=== PATIENT | male | born 1955 | race Two or more races ===

== ENCOUNTER 2022-10-31 07:44 | Outpatient (REF) | payer MEDICARE, SELFPAY ==
[2022-10-31 08:01] LABS: MANUAL DIFF FLAG NO
[2022-10-31 08:09] LABS: Basophils Absolute Auto 0.1 X10*3/uL (0.0-0.2); Basophils Percent Auto 0.8 % (0-2); Eosinophils Absolute Auto 0.2 X10*3/uL (0.0-0.4); Eosinophils Percent Auto 1.8 % (0-4); Hematocrit 41.6 % (42.0-52.0); Hemoglobin 13.3 g/dl (14.0-18.0); Imm Gran Abs Auto 0.03 X10*3/uL (0.00-0.03); Imm Gran Pct Auto 0.3 % (0.0-0.4); Lymphocytes Absolute Auto 2.7 X10*3/uL (1.2-4.9); Lymphocytes Percent Auto 28.8 % (20-40); Mean Corpuscular Hemoglobin 28.5 pg (27.0-33.0); Mean Corpuscular Volume 89.1 fL (80.0-98.0); Mean Platelet Volume 9.9 fL (9.4-12.4); Monocytes Absolute Auto 0.5 X10*3/uL (0.1-1.2); Monocytes Percent Auto 5.2 % (2-11); Neutrophils Percent Auto 63.1 % (45-73); Platelet Count 257 X10*3/uL (160-400); Red Blood Count 4.67 X10*6/uL (4.60-5.80); Red Cell Distribution Width 15.4 % (11.0-16.0); White Blood Count 9.5 X10*3/uL (4.8-10.8)
[2022-10-31 08:37] LABS: Estimated Average Glucose 117 mg/dL; Hemoglobin A1c % 5.7 %
[2022-10-31 08:43] LABS: Alanine Aminotransferase 20 U/L (0-40); Albumin Level 4.3 g/dL (3.5-5.0); Alkaline Phosphatase 77 U/L (39-117); Anion Gap 15 (12-20); Aspartate Amino Transferase 15 U/L (5-37); Bilirubin Total 1.4 mg/dL (0.0-1.0); Blood Urea Nitrogen 20 mg/dL (9-16); Calcium 9.5 mg/dL (8.4-10.2); Carbon Dioxide 23 mmol/L (22-29); Chloride 106 mmol/L (96-108); Cholesterol 112 mg/dL; Estimated Glomerular Filt Rate > 60; Glucose Random 123 mg/dL (60-115); HDL Cholesterol 21 mg/dL; LDL Cholesterol Calculated 70 mg/dl; Potassium 4.1 mmol/L (3.3-5.1); Sodium 140 mmol/L (135-145); Triglycerides 106 mg/dL
[2022-10-31 09:00] LABS: Prostate Specific Antigen 1.24 ng/mL (<0.05-4.0); Thyroid Stimulating Hormone 2.01 uIU/mL (0.32-4.0)
[2022-10-31 09:13] LABS: Folate 17.2 ng/mL (> or = 4.0); Vitamin B12 216 pg/mL (200-900)
== END 2022-10-31 07:45 | disposition home or self-care (01) ==
LOC: HO.LAB 07:44
PROVIDERS: PCP Internal Medicine; Visit Provider Internal Medicine
DX: Z00.01 Encounter for general adult medical examination with abnormal findings (principal); Z12.5 Encounter for screening for malignant neoplasm of prostate; R15.9 Full incontinence of feces; N40.1 Benign prostatic hyperplasia with lower urinary tract symptoms; G81.04 Flaccid hemiplegia affecting left nondominant side; E78.00 Pure hypercholesterolemia, unspecified; E11.9 Type 2 diabetes mellitus without complications
CPT/HCPCS: 36415; 80053; 80061; 82607; 82746; 83036; 84153; 84443; 85025

== ENCOUNTER 2022-11-02 10:09 | Outpatient (REF) | payer MEDICARE, SELFPAY ==
[2022-11-02 11:34] LABS: Creatinine Urine 132.23 mg/dL; Microalbum/Creatinine Ratio Ur 6.8 ug/mg cr
== END 2022-11-02 10:10 | disposition home or self-care (01) ==
LOC: HO.LNP 10:09
PROVIDERS: Visit Provider Internal Medicine
DX: Z00.01 Encounter for general adult medical examination with abnormal findings (principal); E11.9 Type 2 diabetes mellitus without complications; E78.00 Pure hypercholesterolemia, unspecified; G81.04 Flaccid hemiplegia affecting left nondominant side; N40.1 Benign prostatic hyperplasia with lower urinary tract symptoms; R15.9 Full incontinence of feces
CPT/HCPCS: 82043; 87086

== ENCOUNTER → 2022-12-06 14:28 | Outpatient (BNVA) | payer MEDICARE, MEDICAID, SELFPAY | PROVIDERS: PCP Internal Medicine; Visit Provider Urology | DX: Z13.9 Encounter for screening, unspecified (principal); N40.1 Benign prostatic hyperplasia with lower urinary tract symptoms; R39.198 Other difficulties with micturition | CPT/HCPCS: 51798; 99202 ==

== ENCOUNTER → 2022-12-31 15:42 | Outpatient (BNVA) | payer MEDICARE, MEDICAID, SELFPAY | PROVIDERS: PCP Internal Medicine; Visit Provider Surgery Vascular Surgery | DX: I65.29 Occlusion and stenosis of unspecified carotid artery (principal); I73.9 Peripheral vascular disease, unspecified | CPT/HCPCS: 99212 ==

== ENCOUNTER 2023-01-21 14:05 | Outpatient (REF) | payer MEDICARE, MEDICAID, SELFPAY ==
--- NOTE | ~2023-01-21 | US_ITS ---
EXAMINATION: NONINVASIVE ASSESSMENT OF THE ARTERIES OF BOTH LOWER EXTREMITIES WITH PVR EXAM AND BILATERAL LOWER EXTREMITY DUPLEX Sharri Ramos MD CLINICAL INFORMATION: Peripheral vascular disease TECHNIQUE: Ankle pulse volume recordings, ankle pressure measurements and ankle brachial indices were obtained of the lower extremity arterial system bilaterally in addition to duplex Doppler techniques with wave form analysis and measurement of velocities in the common femoral, profunda femoral, superficial femoral, popliteal and tibial arteries. The study was performed only at rest. COMPARISON: None FINDINGS: a) AT REST: RIGHT LE. The right ankle-brachial index is: 0.46 * >0.97-1.25 = normal - no significant arterial disease * 0.75-0.96 = mild peripheral arterial disease * 0.5-0.74 = moderate peripheral arterial disease * <0.50 = severe peripheral arterial disease 2. Right ankle pressure: normal. 3. Right ankle PVR waveform: normal. 4. Right direct duplex Doppler findings: Common femoral artery: 169 cm/s, Multiphasic Profunda femoris artery: 138 cm/s, Multiphasic Superficial femoral artery (proximal): 43 cm/s, monophasic Superficial femoral artery (mid): Occluded Superficial femoral artery (distal): Occluded Proximal Popliteal artery: 47 cm/s, monophasic Mid posterior tibial artery: 20 cm/s, monophasic LEFT LE. The left ankle-brachial index is: 0.63 * >0.97-1.25 = normal - no significant arterial disease * 0.75-0.96 = mild peripheral arterial disease * 0.5-0.74 = moderate peripheral arterial disease * <0.50 = severe peripheral arterial disease 2. Left ankle pressure: normal. 3. Left ankle PVR waveform: normal. 4. Left direct duplex Doppler findings: Common femoral artery: 146 cm/s, Multiphasic Profunda femoris artery: 292 cm/s, Multiphasic Superficial femoral artery (proximal): 241 cm/s, Multiphasic Superficial femoral artery (mid): Occluded Superficial femoral artery (distal): 72 cm/s, monophasic Proximal Popliteal artery: 50 cm/s, monophasic Mid posterior tibial artery: 35 cm/s, monophasic US/US PHOEBE complete IMPRESSION: RIGHT LEG: Severe peripheral arterial disease by PHOEBE. Occlusion of the mid and distal superficial femoral artery with monophasic flow distally. LEFT LEG: Moderate peripheral arterial disease by PHOEBE. Short segment occlusion of the mid superficial femoral artery with monophasic flow distally.
--- NOTE | ~2023-01-21 | US_ITS ---
EXAMINATION: NONINVASIVE ASSESSMENT OF THE ARTERIES OF BOTH LOWER EXTREMITIES WITH PVR EXAM AND BILATERAL LOWER EXTREMITY DUPLEX Sharri Ramos MD CLINICAL INFORMATION: Peripheral vascular disease TECHNIQUE: Ankle pulse volume recordings, ankle pressure measurements and ankle brachial indices were obtained of the lower extremity arterial system bilaterally in addition to duplex Doppler techniques with wave form analysis and measurement of velocities in the common femoral, profunda femoral, superficial femoral, popliteal and tibial arteries. The study was performed only at rest. COMPARISON: None FINDINGS: a) AT REST: RIGHT LE. The right ankle-brachial index is: 0.46 * >0.97-1.25 = normal - no significant arterial disease * 0.75-0.96 = mild peripheral arterial disease * 0.5-0.74 = moderate peripheral arterial disease * <0.50 = severe peripheral arterial disease 2. Right ankle pressure: normal. 3. Right ankle PVR waveform: normal. 4. Right direct duplex Doppler findings: Common femoral artery: 169 cm/s, Multiphasic Profunda femoris artery: 138 cm/s, Multiphasic Superficial femoral artery (proximal): 43 cm/s, monophasic Superficial femoral artery (mid): Occluded Superficial femoral artery (distal): Occluded Proximal Popliteal artery: 47 cm/s, monophasic Mid posterior tibial artery: 20 cm/s, monophasic LEFT LE. The left ankle-brachial index is: 0.63 * >0.97-1.25 = normal - no significant arterial disease * 0.75-0.96 = mild peripheral arterial disease * 0.5-0.74 = moderate peripheral arterial disease * <0.50 = severe peripheral arterial disease 2. Left ankle pressure: normal. 3. Left ankle PVR waveform: normal. 4. Left direct duplex Doppler findings: Common femoral artery: 146 cm/s, Multiphasic Profunda femoris artery: 292 cm/s, Multiphasic Superficial femoral artery (proximal): 241 cm/s, Multiphasic Superficial femoral artery (mid): Occluded Superficial femoral artery (distal): 72 cm/s, monophasic Proximal Popliteal artery: 50 cm/s, monophasic Mid posterior tibial artery: 35 cm/s, monophasic US/US arterial duplex LE BI IMPRESSION: RIGHT LEG: Severe peripheral arterial disease by PHOEBE. Occlusion of the mid and distal superficial femoral artery with monophasic flow distally. LEFT LEG: Moderate peripheral arterial disease by PHOEBE. Short segment occlusion of the mid superficial femoral artery with monophasic flow distally.
--- NOTE | ~2023-01-21 | US_ITS ---
EXAMINATION: US EXTRACRANIAL CAROTID DUPLEX, BILATERAL CLINICAL INFORMATION: Carotid stenosis. COMPARISON: None available. TECHNIQUE: Real-time ultrasound and Doppler techniques (integrating B-mode 2-D vascular images, Doppler spectral analysis and color-flow Doppler imaging) were utilized to interrogate the extracranial carotid arteries, the vertebral arteries and proximal subclavian arteries bilaterally. The degree of stenosis is determined by criteria similar to NASCET. FINDINGS: Right Side: 1. There is moderate atherosclerotic plaque seen in the bifurcation/proximal ICA region. The carotid stent appears patent. 2. The common carotid artery PSV proximally is 101 cm/s and distally 84 cm/s. 3. The proximal internal carotid artery velocities are 105 cm/s systolic and 22 cm/s diastolic. 4. The proximal external carotid artery PSV is 250 cm/s. 5. The vertebral artery shows antegrade flow. 6. The subclavian artery velocity is elevated at 272 cm/s. Left Side: 1. There is mild atherosclerotic plaque seen in the bifurcation/proximal ICA region. 2. The common carotid artery PSV proximally is 85 cm/s and distally 115 cm/s. 3. The proximal internal carotid artery velocities are 103 cm/s systolic and 22 cm/s diastolic. 4. The proximal external carotid artery PSV is 130 cm/s. 5. The vertebral artery shows antegrade flow. 6. The subclavian artery waveforms are normal. US/US carotid duplex BI IMPRESSION: 1. RIGHT: The carotid stent appears patent. Internal carotid artery velocities are normal consistent with less than 50% stenosis. 2. LEFT: Minimal, non-hemodynamically significant stenosis of the proximal left internal carotid artery corresponding to a 0-49% stenosis by velocity criteria.
== END 2023-01-21 14:06 | disposition home or self-care (01) ==
LOC: HO.US 14:05
PROVIDERS: PCP Internal Medicine; Visit Provider Surgery Vascular Surgery
DX: I65.23 Occlusion and stenosis of bilateral carotid arteries (principal); I70.213 Atherosclerosis of native arteries of extremities with intermittent claudication, bilateral legs
CPT/HCPCS: 93880; 93923; 93925

== ENCOUNTER → 2023-01-28 08:49 | Outpatient (BNVA) | payer MEDICARE, MEDICAID, SELFPAY | PROVIDERS: PCP Internal Medicine; Visit Provider Surgery Vascular Surgery | DX: I65.29 Occlusion and stenosis of unspecified carotid artery (principal); I73.9 Peripheral vascular disease, unspecified | CPT/HCPCS: 99212 ==

== ENCOUNTER 2023-02-27 16:42 | Outpatient (REF) | payer MEDICARE, MEDICAID, SELFPAY ==
--- NOTE | ~2023-02-27 | US_ITS ---
EXAMINATION: US RETROPERITONEAL LIMITED (RENAL ONLY) CLINICAL INFORMATION: Benign prostatic hyperplasia with lower urinary tract symptoms. COMPARISON: None available. TECHNIQUE: Real-time imaging of the kidneys. Technically difficult study secondary to bowel gas and body habitus. FINDINGS: RIGHT KIDNEY: 9.5 x 4.1 x 3.9 cm (SAG x AP x TRV). The kidney is normal in size, contour, and echogenicity. Renal cortical thickness is normal. No calculi or focal parenchymal lesions. No hydronephrosis. LEFT KIDNEY: 9.5 x 5.4 x 3.6 cm (SAG x AP x TRV). The kidney is normal in size, contour, and echogenicity. Renal cortical thickness is normal. No calculi or focal parenchymal lesions. No hydronephrosis. US/US renal BI IMPRESSION: Normal renal ultrasound.
== END 2023-02-27 16:43 | disposition home or self-care (01) ==
LOC: HO.US 16:42
PROVIDERS: PCP Internal Medicine; Visit Provider Urology
DX: N40.1 Benign prostatic hyperplasia with lower urinary tract symptoms (principal)
CPT/HCPCS: 76775

== ENCOUNTER 2023-04-03 12:24 | Outpatient (REF) | payer MEDICARE, MEDICAID, SELFPAY ==
[2023-04-05 17:13] LABS: TS Negative Control Passed; TS Panel A 0; TS Panel B 0; TS Positive Control Passed; TSpotTB Negative (Negative)
== END 2023-04-03 12:25 | disposition home or self-care (01) ==
LOC: HO.LAB 12:24
PROVIDERS: PCP Internal Medicine; Visit Provider Internal Medicine
DX: Z11.1 Encounter for screening for respiratory tuberculosis (principal)
CPT/HCPCS: 36415; 86481

== ENCOUNTER 2023-06-03 16:50 | Emergency (ER) | payer OTHER, MEDICAID, SELFPAY ==
--- NOTE | ~2023-06-03 | XR_ITS ---
EXAMINATION: XR CHEST CLINICAL INFORMATION: Chest pain, status post fall COMPARISON: None available. TECHNIQUE: Frontal view of the chest was obtained. FINDINGS: There is pacemaker battery over the left apex with leads over the right atrium and ventricle. No significant abnormality is noted involving the heart, lungs, mediastinum, bony thorax or soft tissues. XR/XR chest 1V IMPRESSION: No active cardiopulmonary disease
--- NOTE | ~2023-06-03 | CT_ITS ---
EXAMINATION: CT HEAD WITHOUT CONTRAST CT CERVICAL SPINE WITHOUT CONTRAST CLINICAL INFORMATION: Fall. COMPARISON: None. TECHNIQUE: Contiguous axial imaging was performed from the skullbase to vertex without intravenous administration of contrast. Multidetector helical imaging was performed through the cervical spine. This CT examination was performed using dose optimization techniques as appropriate, variously including the following: *Automated exposure control *Adjustment of mA and/or kV according to patient size (this includes techniques or standardized protocols for targeted exams where dose is matched to indication/reason for exam; i.e. extremities or head) *Use of iterative reconstruction technique DLP: 826, 408 mGy-cm. FINDINGS: HEAD: There is extensive chronic encephalomalacia in the right frontoparietal lobes and in the right basal ganglia with ex vacuo dilatation of the right lateral ventricle. Generalized parenchymal volume loss noted. There is Wallerian degeneration along the corticospinal tracts on the right side with volume loss in the right aspect of the midbrain and upper roebrta. There is no evidence of acute intracranial hemorrhage or territorial infarction. No abnormal mass effect or midline shift is seen. No extra-axial fluid collections are identified. The osseous structures and soft tissues are normal. There is a 2 cm retention cyst in the left maxillary sinus. Mild ethmoid sinus mucosal thickening noted. The mastoid air cells and remaining visualized portions of the paranasal sinuses are well aerated. CERVICAL SPINE: No acute fracture or subluxation is identified in the cervical spine. Multilevel disc-osteophyte complexes noted with endplate spurring. There is a rightward curvature of the cervical spine. The atlantoaxial articulation is normally maintained. Right carotid stent visible. The paraspinal soft tissues are normal. The lung apices are clear. CT/CT head/brain wo IV con IMPRESSION: 1. No acute intracranial hemorrhage or territorial infarction. 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 Generalized parenchymal volume loss. 2. No evidence of acute cervical spine traumatic injury. Multilevel spondylosis.
--- NOTE | ~2023-06-03 | CT_ITS ---
EXAMINATION: CT HEAD WITHOUT CONTRAST CT CERVICAL SPINE WITHOUT CONTRAST CLINICAL INFORMATION: Fall. COMPARISON: None. TECHNIQUE: Contiguous axial imaging was performed from the skullbase to vertex without intravenous administration of contrast. Multidetector helical imaging was performed through the cervical spine. This CT examination was performed using dose optimization techniques as appropriate, variously including the following: *Automated exposure control *Adjustment of mA and/or kV according to patient size (this includes techniques or standardized protocols for targeted exams where dose is matched to indication/reason for exam; i.e. extremities or head) *Use of iterative reconstruction technique DLP: 826, 408 mGy-cm. FINDINGS: HEAD: There is extensive chronic encephalomalacia in the right frontoparietal lobes and in the right basal ganglia with ex vacuo dilatation of the right lateral ventricle. Generalized parenchymal volume loss noted. There is Wallerian degeneration along the corticospinal tracts on the right side with volume loss in the right aspect of the midbrain and upper roberta. There is no evidence of acute intracranial hemorrhage or territorial infarction. No abnormal mass effect or midline shift is seen. No extra-axial fluid collections are identified. The osseous structures and soft tissues are normal. There is a 2 cm retention cyst in the left maxillary sinus. Mild ethmoid sinus mucosal thickening noted. The mastoid air cells and remaining visualized portions of the paranasal sinuses are well aerated. CERVICAL SPINE: No acute fracture or subluxation is identified in the cervical spine. Multilevel disc-osteophyte complexes noted with endplate spurring. There is a rightward curvature of the cervical spine. The atlantoaxial articulation is normally maintained. Right carotid stent visible. The paraspinal soft tissues are normal. The lung apices are clear. CT/CT cervical spine wo IV con IMPRESSION: 1. No acute intracranial hemorrhage or territorial infarction. 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 Generalized parenchymal volume loss. 2. No evidence of acute cervical spine traumatic injury. Multilevel spondylosis.
[2023-06-03 17:02] VITALS: BP 130/72; BP 143/66; PULSE 88; RESP 18; TEMP 36.9; O2SAT 95; O2SAT 97; BMI 24.3
[2023-06-03 17:11] LABS: Glucose, Whole Blood 157 mg/dL (60-115)
--- NOTE | 2023-06-03 18:03 | ED_ITS ---
HPI - Fall General Chief Complaint: Fall Stated Complaint: FALL FROM W/C IN VAN @ TURN 2HRS AGO,ABRASIONS Time Seen by Provider: 06/03/23 17:02 History of Present Illness HPI Narrative: Patient is a 68-year-old male presented today with having fallen during a chair car ride home. Patient was in a wheelchair when the vehicle made a turn. Subsequently patient landed on the ground. He was helped up by the staff. When home. Family was concerned about a head injury. Patient denies loss of consciousness. No vomiting. But wants a CT scan of the head. Patient is from home. Not on blood thinners. No nausea no vomiting. Related Data Home Medications Medication Instructions Recorded Confirmed aspirin 81 mg tablet,delayed 81 mg PO DAILY 11/26/22 release (Adult Aspirin Regimen) atorvastatin 40 mg tablet 40 mg PO BEDTIME 11/26/22 citalopram 20 mg tablet 20 mg PO DAILY 11/26/22 glipizide 10 mg tablet, extended 10 mg PO DAILY 11/26/22 release 24 hr melatonin 10 mg tablet 10 mg PO BEDTIME PRN 11/26/22 tamsulosin 0.4 mg capsule 0.4 mg PO DAILY 11/26/22 metformin 1,000 mg tablet 1,000 mg PO DAILY 12/31/22 Allergies Allergy/AdvReac Type Severity Reaction Status Date / Time No Known Allergies Allergy Verified 01/28/23 09:06 Review of Systems Review of Systems: Positive head injury Yes all other systems are reviewed and are negative PMFSH Past Medical History Attestation statement: The following information was validated with the patient. Medical History Arrhythmia BPH (benign prostatic hyperplasia) Chronic neurologic disease Depression Diabetes mellitus Hypercholesteremia Hypertension Pacemaker Peripheral vascular disease Retention of urine Type 2 diabetes mellitus Vitamin B12 deficiency anemia Social History Social History Patient Tobacco Use Status: Former Tobacco user Tobacco use type: Cigarette Advance Directives: No Advance Directives Information Provided: Yes Physical Exam Vital Signs: Vital Signs: Last Vital Signs Temp 98.4 F 06/03/23 19:37 Pulse 91 06/03/23 19:37 Resp 14 06/03/23 19:37 BP 121/67 06/03/23 19:37 Pulse Ox 95 06/03/23 19:37 O2 Del Method Room Air 06/03/23 19:37 BMI result Body Mass Index 24.3 Appearance: Alert. Oriented X3. No acute distress. Eyes: Pupils equal, round and reactive to light. ENT: Pharynx normal. There is no midface tenderness. There is no Aponte sign. There is no raccoon eyes. Neck: Normal inspection. Neck supple. No lymph nodes noted. No crepitus. There is no posterior C-spine tenderness elicited on palpation CVS: Normal heart rate and rhythm. Pulses normal. Normal S1 and S2 Respiratory: No respiratory distress. Breath sounds normal. No Wheezing. No rales Abdomen: Soft and nontender. No rigidity. No distention. good BS x4 Skin: Skin warm and dry. Normal skin color. Normal skin turgor. Extremities: No lower extremity edema. Neurovascular intact to all extremities. No Lacerations. No Rash Neuro: Oriented X 3. Positive left-sided weakness upper and lower extremity. Medical Decision Making Medical Decision Making [facility] Narrative: Patient status post accidental fall. The exam appears normal. Patient had question head injury. Family stated patient may have lost consciousness. Patient wanted a CT scan of the head. Patient's labs consistent with diabetes. CT scan of the head by my interpretation grossly negative for any acute evidence of bleeding. No fracture. CT scan of the C-spine showed no acute fracture. Patient's electrolytes consistent with having diabetes. Chest x-ray showed no focal fracture no pneumonia Differential Diagnosis Intracranial bleed, fracture, mass, C-spine injury Lab Data [facility] Lab Attestation statement: I reviewed the patient's lab results. 06/03/23 18:39 Labs: Lab Results 06/03/23 06/03/23 Range/Units 17:07 18:39 Sodium 138 (135-145) mmol/L Potassium 4.7 (3.3-5.1) mmol/L Chloride 104 (96-108) mmol/L Carbon Dioxide 26 (22-29) mmol/L Anion Gap 13 (12-20) BUN 16 (9-16) mg/dL Creatinine 1.18 (0.5-1.4) mg/dL Estim Creat Clear Calc 57.1 Estimated GFR > 60 POC Glucose 157 H (60-115) mg/dL Random Glucose 165 H (60-115) mg/dL Calcium 10.3 H D (8.4-10.2) mg/dL Total Bilirubin 1.1 H (0.0-1.0) mg/dL AST 16 (5-37) U/L ALT 16 (0-40) U/L Alkaline Phosphatase 78 (39-117) U/L Total Protein 7.3 (6.5-8.0) g/dL Albumin 4.2 (3.5-5.0) g/dL Independent Interpretation I performed an independent interpretation of an: Plain X-Ray (Chest x-ray grossly negative. No pneumonia) and CT Scan (CT scan of the head was grossly negative for any acute evidence of bleeding.) Independent Historian Additional history obtained through patient's daughter Chronic Conditions Patient?s care impacted by: Diabetes Previous CVA Discharge Plan Discharge Clinical Impression: Head injury, Fall Patient Disposition: Home, Self-Care Instructions: Head Injury (ED), Fall Prevention (ED), Fall Prevention for Older Adults (ED) Prescriptions: No Action metformin 1,000 mg tablet 1,000 mg PO DAILY aspirin [Adult Aspirin Regimen] 81 mg tablet,delayed release (DR/EC) 81 mg PO DAILY atorvastatin 40 mg tablet 40 mg PO BEDTIME citalopram 20 mg tablet 20 mg PO DAILY glipizide 10 mg tablet extended release 24hr 10 mg PO DAILY melatonin 10 mg tablet 10 mg PO BEDTIME PRN tamsulosin 0.4 mg capsule 0.4 mg PO DAILY Referrals: Physician,Unknown J [Primary Care Provider] - 06/05/23
[2023-06-03 19:00] LABS: Alanine Aminotransferase 16 U/L (0-40); Albumin Level 4.2 g/dL (3.5-5.0); Alkaline Phosphatase 78 U/L (39-117); Anion Gap 13 (12-20); Aspartate Amino Transferase 16 U/L (5-37); Bilirubin Total 1.1 mg/dL (0.0-1.0); Blood Urea Nitrogen 16 mg/dL (9-16); Calcium 10.3 mg/dL (8.4-10.2); Carbon Dioxide 26 mmol/L (22-29); Chloride 104 mmol/L (96-108); Creatinine Clr Calc Pharmacy 57.1; Estimated Glomerular Filt Rate > 60; Glucose Random 165 mg/dL (60-115); Potassium 4.7 mmol/L (3.3-5.1); Sodium 138 mmol/L (135-145); Total Protein 7.3 g/dL (6.5-8.0)
[2023-06-03 19:37] VITALS: BP 121/67; PULSE 91; RESP 14; TEMP 36.9; O2SAT 95
--- NOTE | 2023-06-03 21:11 | PC.NURSE ---
Called daughter and left a message that father is up for discharge if she can pick him up. Awaiting her arrival.
[2023-06-04 07:03] LABS: Estimated Average Glucose 151 mg/dL; Hemoglobin A1c % 6.9 % (<6.0)
== END 2023-06-03 22:16 | disposition home or self-care (01) ==
PROVIDERS: Emergency Provider Emergency Medicine Emergency Medical Services
DX: S09.90XA Unspecified injury of head, initial encounter (principal); S00.91XA Abrasion of unspecified part of head, initial encounter; R51.9 Headache, unspecified; M54.2 Cervicalgia; R07.89 Other chest pain; W05.0XXA Fall from non-moving wheelchair, initial encounter; Y93.9 Activity, unspecified; Y92.9 Unspecified place or not applicable; Y99.9 Unspecified external cause status; Z79.899 Other long term (current) drug therapy; Z87.891 Personal history of nicotine dependence
CPT/HCPCS: 36415; 70450; 71045; 72125; 80053; 82947; 83036; 99284

== ENCOUNTER 2023-08-04 15:11 | Outpatient (REF) | payer OTHER, MEDICAID, SELFPAY ==
--- NOTE | ~2023-08-04 | US_ITS ---
EXAMINATION: Noninvasive assessment of the bilateral lower extremities with ARTERIAL DUPLEX and ANKLE BRACHIAL INDICES (ABIs). CLINICAL INFORMATION: Peripheral vascular disease with history of bilateral lower extremity claudication and superficial femoral artery occlusions TECHNIQUE: Duplex Doppler techniques with waveform analysis and measurement of velocities in the bilateral common femoral, profunda femoris, superficial femoral, popliteal and tibial arteries were performed. Additionally, ankle pulse volume recordings, ankle pressure measurements and ankle brachial indices were obtained of the lower extremity arterial system bilaterally. The study was performed only at rest. COMPARISON: 01/21/2023 FINDINGS: DIRECT DUPLEX DOPPLER FINDINGS: RIGHT LEG: Common femoral artery: 135 cm/s, phasicity: Biphasic. Moderate calcified plaque Profunda femoris artery: 80.7 cm/s, phasicity: Biphasic Superficial femoral artery (at ostium): 76 cm/s, phasicity: Biphasic. Superficial femoral artery occludes just distal to the ostium. Superficial femoral artery (mid): Occluded Superficial femoral artery (distal): Occluded Popliteal artery: 67 cm/s, phasicity: Monophasic Posterior tibial artery: 12 cm/s, phasicity: Monophasic. Proximal segment appears occluded with reconstituted flow within the mid and distal segments Peroneal artery: Occluded Anterior tibial artery: 10 cm/s, phasicity: Monophasic Dorsalis pedis artery: 7 cm/s, phasicity:Monophasic LEFT LEG: Common femoral artery: 104 cm/s, phasicity: Triphasic. Moderate calcified plaque Profunda femoris artery: 209 cm/s, phasicity: Triphasic Superficial femoral artery (at ostium): 194 cm/s, phasicity: Monophasic. Superficial femoral artery occludes just distal to the ostium Superficial femoral artery (mid): Occluded Superficial femoral artery (distal): 30 cm/s, phasicity: Monophasic Popliteal artery: 57 cm/s, phasicity: Biphasic Posterior tibial artery: 22 cm/s, phasicity: Monophasic Peroneal artery: Occluded Anterior tibial artery: Occluded Dorsalis pedis artery: Occluded ANKLE-BRACHIAL INDEX: Right: 0.56, previously 0.46? Left: 0.7, previously 0.63 ANKLE PRESSURES: Right: PT nondetectable, DP 72 Left: PT?90, DP?nondetectable ANKLE PVR WAVEFORMS: Right: Abnormal Left: Abnormal US/US arterial duplex LE BI IMPRESSION: Stable bilateral ankle brachial indices with abnormal PVR waveforms. There is chronic occlusion of the bilateral superficial femoral arteries which is unchanged compared to the prior exam. Chronic occlusive changes also seen within the right proximal posterior tibial artery, right peroneal artery, left peroneal artery, left anterior tibial and dorsalis pedis arteries. PHOEBE Reference: - >1.4 = calcified vessels - 0.9 - 1.4 = normal - no significant arterial disease - 0.7 - 0.89 = mild peripheral arterial disease - 0.51 - 0.69 = moderate peripheral arterial disease - ? 0.50 = severe peripheral arterial disease - < .30 = critical arterial disease
== END 2023-08-04 15:12 | disposition home or self-care (01) ==
LOC: HO.US 15:11
PROVIDERS: Visit Provider Surgery Vascular Surgery
DX: I73.9 Peripheral vascular disease, unspecified (principal)
CPT/HCPCS: 93923; 93925

== ENCOUNTER 2023-09-11 15:23 | Outpatient (AMB) | payer OTHER, MEDICAID, SELFPAY ==
--- NOTE | 2023-09-11 15:35 | MHC.OFFVIS ---
Intake Vital Signs 09/11/23 15:36 Height 5 ft 8 in Weight 185 lb BMI 28.1 Intake Visit Reasons: Follow Up 08/04 Arterial US Intake Note: 6 mo arterial US follow up 08/04/23. Pt states Left LE is worse than Right LE. Pt complains of pain in left LE. Pt is non-ambulatory, in wheelchair today Accompanied by: Child Allergies No Known Allergies Allergy (Verified 09/11/23 15:40) HPI Follow Up 08/04 Arterial US HPI Details Very pleasant 68-year-old gentleman presents for routine surveillance follow-up regarding his lower extremity status. He has had no interval issues. Is essentially wheelchair bound and does take a few steps around the house but other than that has been essentially in a chair. He now presents for routine follow-up. Of note he is being maintained on aspirin and statin PFSH Medical History Pacemaker Type 2 diabetes mellitus Hypercholesteremia Vitamin B12 deficiency anemia Peripheral vascular disease Retention of urine Diabetes mellitus Depression Chronic neurologic disease BPH (benign prostatic hyperplasia) Arrhythmia Hypertension Social History Alcohol intake: never Patient Tobacco Use Status: Former Tobacco user Tobacco use type: Cigarette Review of Systems Const All systems reviewed & are unremarkable except as noted in HPI and below Reports no additional complaints ENT Reports Normal hearing present Card Denies chest pain, Denies chest pain at rest, Denies chest pain with activity and Denies pedal edema Resp Denies cough GI Denies abdominal pain Musc Denies abnormal gait, Denies muscle cramps and Denies radiating pain into limb Skin/Breast Denies skin ulcer and Denies wounds Neuro Reports Normal hearing present and Denies abnormal gait Psych Reports no additional complaints Physical Exam Vital Signs: BMI result Body Mass Index 28.1 Const Other: Weakened state General: cooperative and comfortable Nutritional Appearance: cachectic Orientation/consciousness: oriented to person, oriented to place and oriented to time HEENT Head: Yes normal to inspection Neck Neck: Yes normal visual inspection Carotids: no bruits Chest Chest palpation & inspection: normal inspection of the chest Resp Effort & Inspection: normal respiratory effort and able to speak in complete sentences Auscultation: clear to auscultation bilaterally, no crackles, no rales, no rhonchi and no wheezes Cardio Rate: regular rate Rhythm: regular rhythm Heart sounds: S1 normal heart sound present and S2 normal heart sound present Bruits: no carotid bruits GI Inspection: Yes normal to inspection Skin Wounds: no wounds Hair: normal Neuro General: oriented to person, oriented to place and oriented to time Cranial nerves: Yes CN's II-XII intact bilaterally and Yes Normal hearing present Cognition (Neuro): normal cognition Motor exam (neuro): 5/5 motor strength present throughout Extrem Other: venous exam: No significant superficial varicosities or spider telangiectasias, minimal edema General: No clubbing, No cyanosis and No edema Psych Appearance: grossly normal Mental Status: mental status grossly normal Speech and movement: Normal speech and movement present Results Reviewed Results Reviewed: Noninvasive lower extremity testing on 08/04/2023 demonstrates PHOEBE on the right of 0.56 on on the left of 0.7 which is similar to previous study. Written report and images were reviewed Assessment & Plan Assessment & Plan (1) Peripheral vascular disease: Code(s): I73.9 - Peripheral vascular disease, unspecified Plan: In short patient is stable from a peripheral vascular standpoint. He is essentially nonambulatory. His PHOEBE is although somewhat low are stable. Would only intervene if he had critical limb ischemia. At the current time I appreciate no active ulceration. We will continue to monitor his status. (2) Carotid stenosis: Comment: Right carotid stent Code(s): I65.29 - Occlusion and stenosis of unspecified carotid artery Qualifiers: Laterality: bilateral Qualified Code(s): I65.23 - Occlusion and stenosis of bilateral carotid arteries Plan: Due to his prior carotid stent will schedule for 6 month carotid surveillance follow-up. Risk factor modification was discussed with the patient and daughter who was at bedside. Thank you for allowing us to assist in his care. Orders: Orders US carotid duplex BI 6 Months I65.23 - Occlusion and stenosis of bilateral carotid arteries Coding Level of Care Code Est Pt Level 4 (37485) Diagnoses Peripheral vascular disease I73.9 Bilateral carotid artery stenosis I65.23 Laterality: bilateral
[2023-09-11 15:36] VITALS: BMI 28.1
== END 2023-09-11 15:51 | disposition home or self-care (01) ==
PROVIDERS: Visit Provider Surgery Vascular Surgery
DX: I73.9 Peripheral vascular disease, unspecified (principal); I65.23 Occlusion and stenosis of bilateral carotid arteries
CPT/HCPCS: 99213

== ENCOUNTER → 2023-09-11 15:23 | Outpatient (BNVA) | payer OTHER, MEDICAID, SELFPAY | PROVIDERS: Visit Provider Surgery Vascular Surgery | DX: I73.9 Peripheral vascular disease, unspecified (principal); I65.23 Occlusion and stenosis of bilateral carotid arteries | CPT/HCPCS: 99212 ==

== ENCOUNTER 2023-10-09 15:41 | Emergency (ER) | payer OTHER, MEDICAID, SELFPAY ==
[2023-10-09 15:59] VITALS: BP 128/68; PULSE 93; RESP 18; TEMP 36.9; O2SAT 96; BMI 25.1
--- NOTE | 2023-10-09 16:05 | ED.CHESTPAIN ---
HPI - Chest Pain General Chief Complaint: Chest Pain Stated Complaint: abrnormal ekg, sent from [facility] History of Present Illness HPI narrative: Left without completion of treatment by ED provider Related Data Home Medications Medication Instructions Recorded Confirmed aspirin 81 mg tablet,delayed 81 mg PO DAILY 11/26/22 release (Adult Aspirin Regimen) atorvastatin 40 mg tablet 40 mg PO BEDTIME 11/26/22 citalopram 20 mg tablet 20 mg PO DAILY 11/26/22 glipizide 10 mg tablet, extended 10 mg PO DAILY 11/26/22 release 24 hr melatonin 10 mg tablet 10 mg PO BEDTIME PRN 11/26/22 tamsulosin 0.4 mg capsule 0.4 mg PO DAILY 11/26/22 metformin 1,000 mg tablet 1,000 mg PO DAILY 12/31/22 Allergies Allergy/AdvReac Type Severity Reaction Status Date / Time No Known Allergies Allergy Verified 09/11/23 15:40 [facility] Past Medical History Onset Date is defined in the Problem List Problems that require an onset date and time if occurred within 24 hrs of arrival to the ED Aortic Dissection and Rupture; Neurologic impairment; Cardiopulmonary Arrest; Endotracheal Intubation; Insertion or Replacement of Mechanical Circulatory Assist Device Medical History Pacemaker Type 2 diabetes mellitus Hypercholesteremia Vitamin B12 deficiency anemia Peripheral vascular disease Retention of urine Diabetes mellitus Depression Chronic neurologic disease BPH (benign prostatic hyperplasia) Arrhythmia Hypertension Social History Social History Alcohol intake: never Patient Tobacco Use Status: Former Tobacco user Tobacco use type: Cigarette Advance Directives: No Advance Directives Information Provided: No Physical Exam Vital Signs: Vital Signs: Last Vital Signs Temp 98.5 F 10/09/23 15:59 Pulse 93 10/09/23 15:59 Resp 18 10/09/23 15:59 BP 128/68 10/09/23 15:59 Pulse Ox 96 10/09/23 15:59 O2 Del Method Room Air 10/09/23 15:59 BMI result Body Mass Index 25.1 Course Course Course Narrative: RME: 68-year-old male presents to the ED for resolved chest pain. Patient denies any shortness of breath or dizziness. Chest pain was yesterday. Patient sent by electronics technician apprentice for evaluation. EKG labs ordered. Medical Decision Making Lab Data 10/09/23 17:11 10/09/23 17:11 Labs: Lab Results 10/09/23 Range/Units 17:11 WBC 9.2 (4.8-10.8) X10*3/uL RBC 4.46 L (4.60-5.80) X10*6/uL Hgb 13.3 L (14.0-18.0) g/dl Hct 40.2 L (42.0-52.0) % MCV 90.1 (80.0-98.0) fL MCH 29.8 (27.0-33.0) pg MCHC 33.1 (31.0-36.0) g/dl RDW 14.1 (11.0-16.0) % Plt Count 229 (160-400) X10*3/uL MPV 9.9 (9.4-12.4) fL Immature Gran % (Auto) 0.3 (0.0-0.4) % Neut % (Auto) 66.3 (45-73) % Lymph % (Auto) 23.9 (20-40) % [place] % (Auto) 6.7 (2-11) % Eos % (Auto) 2.4 (0-4) % Baso % (Auto) 0.4 (0-2) % Lymph # (Auto) 2.2 (1.2-4.9) X10*3/uL [place] # (Auto) 0.6 (0.1-1.2) X10*3/uL Eos # (Auto) 0.2 (0.0-0.4) X10*3/uL Baso # (Auto) 0.0 (0.0-0.2) X10*3/uL Abs Immat Gran (auto) 0.03 (0.00-0.03) X10*3/uL Absolute Neuts (auto) 6.1 (2.0-8.3) x10*3/uL Absolute Nucleated RBC 0.000 (0.0-0.012) X10*3/uL Nucleated RBC % (auto) 0.0 (0.0-0.2) /100WBC Sodium 138 (135-145) mmol/L Potassium 4.1 (3.3-5.1) mmol/L Chloride 105 (96-108) mmol/L Carbon Dioxide 21 L (22-29) mmol/L Anion Gap 16 (12-20) BUN 21 H (9-16) mg/dL Creatinine 0.97 (0.5-1.4) mg/dL Estim Creat Clear Calc 71.8 Estimated GFR > 60 Random Glucose 140 H (60-115) mg/dL Calcium 9.9 (8.4-10.2) mg/dL Total Bilirubin 1.5 H (0.0-1.0) mg/dL AST 16 (5-37) U/L ALT 17 (0-40) U/L Alkaline Phosphatase 84 (39-117) U/L Troponin I High Sens 9.0 (<3.5-35.0) ng/L B-Natriuretic Peptide 45 (<100) pg/mL Total Protein 7.4 (6.5-8.0) g/dL Albumin 4.3 (3.5-5.0) g/dL Discharge Plan Discharge Clinical Impression: Chest pain Patient Disposition: Left W/O Completing Treatment Prescriptions: No Action metformin 1,000 mg tablet 1,000 mg PO DAILY aspirin [Adult Aspirin Regimen] 81 mg tablet,delayed release (DR/EC) 81 mg PO DAILY atorvastatin 40 mg tablet 40 mg PO BEDTIME citalopram 20 mg tablet 20 mg PO DAILY glipizide 10 mg tablet extended release 24hr 10 mg PO DAILY melatonin 10 mg tablet 10 mg PO BEDTIME PRN tamsulosin 0.4 mg capsule 0.4 mg PO DAILY Discharge Date/Time: 10/09/23 23:39
== END 2023-10-09 23:39 | disposition left against medical advice (07) ==
PROVIDERS: Emergency Provider Emergency Medicine; PCP Internal Medicine
DX: R07.9 Chest pain, unspecified (principal); E11.9 Type 2 diabetes mellitus without complications; I10 Essential (primary) hypertension; E78.00 Pure hypercholesterolemia, unspecified; Z95.0 Presence of cardiac pacemaker; Z79.82 Long term (current) use of aspirin; Z79.02 Long term (current) use of antithrombotics/antiplatelets; Z79.84 Long term (current) use of oral hypoglycemic drugs; Z87.891 Personal history of nicotine dependence
CPT/HCPCS: 36415; 71045; 80053; 83880; 84484; 85025; 93005; 99283

== ENCOUNTER → 2023-10-09 16:05 | Outpatient (BNV) | payer OTHER, MEDICAID, SELFPAY | PROVIDERS: Emergency Provider Emergency Medicine; PCP Internal Medicine; Visit Provider Internal Medicine Cardiovascular Disease | DX: R94.31 Abnormal electrocardiogram [ECG] [EKG] (principal) | CPT/HCPCS: 93010 ==